=== PATIENT | female | born 1985 | race Hispanic/Latino ===

== ENCOUNTER 2023-01-23 10:54 | Outpatient (CLI) | payer BC | END 2023-01-23 10:55 | disposition home or self-care (01) | LOC: CSHCT 10:54 | PROVIDERS: ATTEND Neurological Surgery | DX: S06.6XAA Traumatic subarachnoid hemorrhage with loss of consciousness status unknown, initial encounter (principal); J32.0 Chronic maxillary sinusitis | CPT/HCPCS: 70450 ==

== ENCOUNTER 2024-01-12 08:18 | Day surgery (SDC) | payer BC, OTHER ==
[2024-01-11 14:41] VITALS: BMI 36.6
[2024-01-12] MEDS ORDERED: CEFAZOLIN 2 GM VIAL ONE (09:55)
[2024-01-12] MEDS ORDERED: Bupivacaine PF 0.5% 30 ML VIAL ONE (09:55)
[2024-01-12] MEDS ORDERED: Fentanyl 250 MCG/5 ML VIAL ONE (09:56)
[2024-01-12] MEDS ORDERED: Lidocaine 1% PF 5 ML VIAL ONE (09:56)
[2024-01-12] MEDS ORDERED: PROPOFOL 20 ML ONE (09:56)
[2024-01-12] MEDS ORDERED: Ondansetron PF 4 MG/2 ML Vial ONE (09:56)
[2024-01-12] MEDS ORDERED: Dexamethasone 4 mg/ml Vial ONE (09:56)
[2024-01-12] MEDS ORDERED: Triamcinolone 40 MG/ML VIAL ONE (10:23)
[2024-01-12] MEDS ORDERED: Ketorolac Tromethamine 30 MG (1 mL) VIAL ONE (10:46)
[2024-01-12] MEDS ORDERED: Bupivacaine/Epinephrine 0.25% 30 ML VIAL ONE (10:50)
== END 2024-01-12 12:50 | disposition home or self-care (01) ==
LOC: CSHSDC 08:18
PROVIDERS: ATTEND Podiatrist Foot & Ankle Surgery
DX: M72.2 Plantar fascial fibromatosis (principal); M77.52 Other enthesopathy of left foot and ankle; M79.672 Pain in left foot; M77.32 Calcaneal spur, left foot
CPT/HCPCS: J0665; J1100; J1885; J2405; J2704; J3010; J3301

== ENCOUNTER → 2024-11-01 | Day surgery (SDC) | payer BC ==
[~2024-11-01] MED LIST: CEFAZOLIN 2 GM VIAL ONE; HYDROcodone/Acetaminophen 5/325 mg Tablet ONE; Lidocaine 1% PF 5 ML VIAL ONE; Ondansetron PF 4 MG/2 ML Vial ONE; PHENYLEPHRINE-NS 100 MCG/ML 10 ML SYRINGE ONE; PROPOFOL 20 ML ONE; Sevoflurane 250 ML INH ANEST BOTTLE ONE
[2024-11-01 08:46] LABS: #Basophils 0.03 10x3/uL (0.0-0.2); #Eosinophils 0.10 10x3/uL (0.0-0.5); #Monocytes 0.49 10x3/uL (0.0-1.1); #Neutrophils 3.32 10x3/uL (1.5-8.4); %Basophils 0.5 % (0.0-2.0); %Eosinophils 1.7 % (0.0-6.0); %Lymphocytes 34.1 % (18.0-47.0); %Monocytes 8.2 % (0.0-10.0); %Neutrophils 55.3 % (40.0-75.0); Hematocrit 39.7 % (34.9-44.5); Hemoglobin 13.4 g/dL (12.0-15.5); Mean Corpuscular Hemoglobin 29.9 pg (27.0-33.0); Mean Corpuscular Volume 88.6 fL (81.6-98.3); Platelet Count 343 10x3/uL (150-450); Red Blood Cell (RBC) Count 4.48 10x6/uL (3.90-5.03); White Blood Cell (WBC) Count 5.99 10x3/uL (3.5-10.5)
== END ==
LOC: CSHSDC 07:55
PROVIDERS: ATTEND Obstetrics & Gynecology
PROC: 10D07Z5 Extraction of Products of Conception, High Forceps, Via Natural or Artificial Opening (ICD-10-PCS; principal; 2024-11-01)
DX: O02.1 Missed abortion (principal); Z88.1 Allergy status to other antibiotic agents
CPT/HCPCS: 85025; 86850; 86900; 86901; 88305; J1100; J2405; J2704; J3010